=== PATIENT | female | born 1960 | race Caucasian/White ===

== ENCOUNTER → 2020-07-14 | Outpatient (CLI) | payer OTHER ==
--- NOTE | 2020-07-14 16:37 | RAD ---
PROCEDURE: HIP LEFT 2V WITH PELVIS STUDY DATE: 07/14/2020 CLINICAL INDICATION / HISTORY: Reason: LEFT HIP PAIN / Spl. Instructions: / History: . TECHNIQUE:Three views of the left hip were obtained, including an AP view of the pelvis. COMPARISON: No relevant comparisons currently available FINDINGS: There is mild generalized demineralization. Sclerosis at the right L5 pedicle is present. There is normal bony alignment present with the femoral heads well-seated within the acetabuli. No acute fracture or dislocation is apparent. There is foreshortening of the left femoral neck, consistent with an old, healed fracture. Osteophytic spurs on the femoral head are also evident, consistent with degenerative changes. The overlying soft tissues are grossly unremarkable. 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 Electronically signed by: Saman Kerr MD (07/14/2020 4:34 PM) [id number]
== END ==
LOC: PMG 10:24
PROVIDERS: ATTEND Physician Assistant Medical
DX: M16.12 Unilateral primary osteoarthritis, left hip (principal); M25.752 Osteophyte, left hip; M76.892 Other specified enthesopathies of left lower limb, excluding foot
CPT/HCPCS: 73502

== ENCOUNTER → 2021-02-19 | Outpatient (CLI) | payer OTHER ==
--- NOTE | 2021-03-03 10:29 | RAD ---
DATE: 02/19/2021 EXAM: MAMMO ALEXANDRA SCREENING BILATERAL HISTORY: Screening COMPARISON: 06/03/2016, 2017, 05/03/2020 This study was interpreted with the benefit of Computerized Aided Detection (CAD). Breast Density: SCATTERED The breast parenchyma shows scattered fibroglandular densities. Breast parenchyma level B. FINDINGS: No mass, suspicious calcification, or architectural distortion in either breast. IMPRESSION: No evidence of malignancy. BI-RADS CATEGORY: 1 NEGATIVE RECOMMENDED FOLLOW-UP: 12M 12 MONTH FOLLOW-UP PQRS compliance statement: Patient information was entered into a reminder system with a target due date for the next mammogram. Mammography is a sensitive method for finding small breast cancers, but it does not detect them all and is not a substitute for careful clinical examination. A negative mammogram does not negate a clinically suspicious finding and should not result in delay in biopsying a clinically suspicious abnormality. "Our facility is accredited by the [employer] Mammography Program."
== END ==
LOC: MAMMO 07:50
PROVIDERS: ATTEND Physician Assistant Medical
DX: Z12.31 Encounter for screening mammogram for malignant neoplasm of breast (principal)
CPT/HCPCS: 77063; 77067

== ENCOUNTER → 2021-06-14 | Outpatient (CLI) | payer OTHER | LOC: LAB 10:30 | PROVIDERS: ATTEND Orthopaedic Surgery | DX: Z79.01 Long term (current) use of anticoagulants (principal) | CPT/HCPCS: 36415; 85610 ==

== ENCOUNTER → 2021-07-29 | Outpatient (CLI) | payer OTHER ==
--- NOTE | 2021-07-29 17:03 | RAD ---
Study: XR HIP (WITH OR WITHOUT PELVIS)LEFT 1 VIEW Indication: Status post hip replacement reportedly in May 2021 Comparison: 06/08/2021 Findings: More pronounced lucency along the inferomedial aspect of the acetabular cup now measuring 7 mm in thi ckness compared to 2 mm on the AP view noting that the patient is positioned differently. Thinned sup eromedial acetabular wall with possible mild periosteal bone formation along the inner margin of the more medial of the two fixation screws. The cephalad margin of the femoral head component of the cons truct is 5 mm above the superior margin of the grayling right femoral head which is faintly more pronou nced from the prior. The femoral stem is intact and without loosening or periprosthetic fracture. Right hip arthrosis is mild without joint space collapse. Height loss of the L5 vertebral body is similar to the 07/14/2020 comparison. Incompletely evaluated d egenerative changes from L2-L3 through L5-S1. Unchanged mild arthrosis at the pubic symphysis. More n oticeable faint sclerosis at the inferior pubic ramus on the left. There may be mild sclerosis at the right superior pubic ramus but difficult to confirm given the single view of this location. Impression: 1. There are findings involving the left hip arthroplasty construct which could represent loosening/s ubsidence of the acetabular cup however direct comparison with the postoperative radiographs from is made difficult due to differences in patient positioning. It is also uncertain if the vern ent presents for routine postoperative follow-up or if there is left hip pain. More noticeable lucenc y along the inferomedial margin of the acetabular cup measured at 7 mm and the degree in which the fe moral head component projects higher than the grayling right femoral head is slightly greater (see burt images). No evidence for loosening or periprosthetic fracture along the femoral stem. 2. Faint sclerosis at the left inferior pubic ramus which is nonspecific but could represent healing of an occult nondisplaced fracture if there has been recent trauma or potentially a stress reaction/f racture. Electronically signed by: BOBO HUDSON MD (07/29/2021 5:01 PM) [id number]
== END ==
LOC: RAD 10:30
PROVIDERS: ATTEND Physician Assistant
DX: M25.852 Other specified joint disorders, left hip (principal); M51.26 Other intervertebral disc displacement, lumbar region; M16.0 Bilateral primary osteoarthritis of hip; M47.817 Spondylosis without myelopathy or radiculopathy, lumbosacral region; Z96.642 Presence of left artificial hip joint
CPT/HCPCS: 73501

== ENCOUNTER → 2021-11-19 | Outpatient (CLI) | payer OTHER ==
--- NOTE | 2021-11-19 14:40 | RAD ---
EXAMINATION: XR KNEE _3 VIEWS_LT CLINICAL HISTORY: LEFT KNEE PAIN, BEGAN AFTER HIP SURGERY-MAY 2021 . TECHNIQUE: XR KNEE _3 VIEWS_LT Number of Images/Views: 3 COMPARISON: None FINDINGS: Moderate medial and lateral compartment narrowing. Tricompartmental small marginal osteophytes. No ac santi fracture. Irregularity of the posterior lateral tibial plateau, likely related to remote trauma. Questionable joint effusion. IMPRESSION: Moderate degenerative changes left knee as described. Electronically signed by: Gary Thompson DO (11/19/2021 2:38 PM) [id number]
== END ==
LOC: RAD 10:41
PROVIDERS: ATTEND Physician Assistant Medical
DX: M17.12 Unilateral primary osteoarthritis, left knee (principal); M25.762 Osteophyte, left knee; M25.862 Other specified joint disorders, left knee
CPT/HCPCS: 73562